=== PATIENT | male | born 1995 | race Caucasian/White ===

== ENCOUNTER 2025-06-22 21:52 | Emergency (ER) | payer SELFPAY ==
[~2025-06-22] VITALS: Ht 188 cm; Wt 82.6 kg
[2025-06-22 21:52] VITALS: BP 134/91; PULSE 90; RESP 18; TEMP 98.1; O2SAT 98
[2025-06-22 22:26] VITALS: BP 136/80; PULSE 87; RESP 18; O2SAT 98
== END 2025-06-22 22:27 | disposition home or self-care (01) ==
LOC: ER 21:52
DX: S39.94XA Unspecified injury of external genitals, initial encounter (principal); W22.8XXA Striking against or struck by other objects, initial encounter; Y93.89 Activity, other specified; Y92.89 Other specified places as the place of occurrence of the external cause; Y99.8 Other external cause status
CPT/HCPCS: 99284